=== PATIENT | male | born 2000 | race Hispanic/Latino ===

== ENCOUNTER 2018-07-24 10:57 | Emergency (ER) | payer MEDICAID, OTHER ==
[2018-07-24 11:00] VITALS: BMI 22.0
[2018-07-24 11:06] VITALS: RESP 18; TEMP 97.9; O2SAT 97
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
--- NOTE | 2018-07-24 13:37 | RAD ---
Date of service: 07/24/2018 PROCEDURE: Right Femur Radiographs. HISTORY: leg pain s/p autoped COMPARISON: None. TECHNIQUE: AP and Lateral Radiographs of the right femur. FINDINGS: FEMUR: Normal. No fracture. SOFT TISSUES: Normal. OTHER FINDINGS: None. IMPRESSION: Unremarkable radiographs of the right femur.
--- NOTE | 2018-07-24 13:50 | RAD ---
PROCEDURE: Right Hip Radiographs. HISTORY: hip pain COMPARISON: None. FINDINGS: BONES: Normal. No fracture. JOINTS: Normal. SOFT TISSUES: Normal. OTHER FINDINGS: None. IMPRESSION: Normal radiographs of right hip.
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
[2018-07-24 14:31] VITALS: BP 112/78; PULSE 91
== END 2018-07-24 14:00 | disposition home or self-care (01) ==
LOC: ED 10:57
DX: M25.561 Pain in right knee (principal); M25.551 Pain in right hip; M79.604 Pain in right leg
CPT/HCPCS: 29530; 73502; 73552; 73560; 96372; 99285; J1885